=== PATIENT | female | born 1940 | race Caucasian/White ===

== ENCOUNTER 2016-10-12 12:16 | Outpatient (CLI) | payer MEDICARE ==
[2016-10-12 13:43] LABS: Hemoglobin A1c 9.7 % (4.0-6.0)
== END 2016-10-12 12:17 | disposition home or self-care (01) ==
LOC: NAV LAB 12:16
PROVIDERS: ATTEND Internal Medicine
DX: E11.9 Type 2 diabetes mellitus without complications (principal)
CPT/HCPCS: 83036